=== PATIENT | female | born 1990 | race Caucasian/White ===

== ENCOUNTER → 2016-11-23 | Outpatient (REF) | payer OTHER ==
[~2016-11-23] MED LIST: BIRTH CONTROL PILL; LEVA500T; PERC5TAB8
[2016-11-23 14:01] LABS: MEAN CORPUSCULAR HEMOGLOBIN 31.7 pg (27.0-33.0); MEAN CORPUSCULAR HGB CONC 34.1 g/dl (32.0-36.5); MEAN CORPUSCULAR VOLUME 93.1 fl (80.0-96.0); RED CELL DISTRIBUTION WIDTH 11.4 % (11.5-14.5); WHITE BLOOD COUNT 6.7 K/mm3 (4.0-10.0)
[2016-11-23 15:02] LABS: HCG, SERUM QUANTITATIVE 44954 MIU/ML
[2016-11-24 12:52] LABS: HBsAg Prenatal NEGATIVE (NEGATIVE)
[2016-11-24 13:15] LABS: HIV SCREEN CENTAUR NEGATIVE (NEGATIVE)
== END ==
LOC: M LAB REF 12:25
PROVIDERS: ATTEND Obstetrics & Gynecology
DX: O36.80X0 Pregnancy with inconclusive fetal viability, not applicable or unspecified (principal)

== ENCOUNTER → 2017-01-18 | Outpatient (REF) | payer OTHER | LOC: M LAB REF 16:53 | PROVIDERS: ATTEND Advanced Practice Midwife | DX: Z34.82 Encounter for supervision of other normal pregnancy, second trimester (principal) ==

== ENCOUNTER → 2017-02-03 | Outpatient (REF) | payer OTHER | LOC: M LAB REF 16:25 | PROVIDERS: ATTEND Obstetrics & Gynecology | DX: Z34.02 Encounter for supervision of normal first pregnancy, second trimester (principal); N39.0 Urinary tract infection, site not specified ==

== ENCOUNTER → 2017-04-14 | Outpatient (CLI) | payer BC, OTHER ==
[~2017-04-14] MED LIST changes: +MOTR200T44 PO; +PRENTAB9 PO; +TYLE325C PO
[2017-04-14 12:48] LABS: MEAN CORPUSCULAR HEMOGLOBIN 32.7 pg (27.0-33.0); MEAN CORPUSCULAR HGB CONC 34.4 g/dl (32.0-36.5); RED CELL DISTRIBUTION WIDTH 11.8 % (11.5-14.5)
[2017-04-15 15:40] LABS: WHITE BLOOD COUNT 7.3 K/mm3 (4.0-10.0)
== END ==
LOC: M LAB 10:02
PROVIDERS: ATTEND Obstetrics & Gynecology
DX: Z34.02 Encounter for supervision of normal first pregnancy, second trimester (principal)

== ENCOUNTER 2017-05-13 17:02 | Emergency (ER) | payer BC, OTHER ==
[~2017-05-13] VITALS: Ht 152.4 cm; Wt 66.0 kg
[2017-05-13 17:02] VITALS: BP 126/76
[~2017-05-13 17:02] MED LIST changes: -MOTR200T44 PO; -PRENTAB9 PO; -TYLE325C PO
== END 2017-05-13 17:31 | disposition admitted as inpatient to this hospital (09) ==
LOC: M ED 17:02
DX: Z04.1 Encounter for examination and observation following transport accident (principal); Z53.21 Procedure and treatment not carried out due to patient leaving prior to being seen by health care provider

== ENCOUNTER 2017-05-13 17:35 | Outpatient (CLI) | payer BC, OTHER ==
[~2017-05-13] VITALS: Ht 152.4 cm; Wt 72.0 kg
[2017-05-13 17:47] VITALS: BP 127/60
[2017-05-13 18:43] LABS: BASO % 0.3 % (0.0-1.0); EOS # 0.2 K/mm3 (0.0-0.50); EOS % 2.4 % (0.0-3.0); LARGE UNSTAINED CELL # 0.1 K/mm3 (0.0-0.4); LARGE UNSTAINED CELL % 1.3 % (0.0-4.0); LYMPH # 1.5 K/mm3 (1.5-6.5); LYMPH % 14.7 % (24.0-44.0); MEAN CORPUSCULAR HEMOGLOBIN 31.9 pg (27.0-33.0); MEAN CORPUSCULAR HGB CONC 33.8 g/dl (32.0-36.5); MEAN CORPUSCULAR VOLUME 94.5 fl (80.0-96.0); MONO # 0.5 K/mm3 (0.0-0.8); MONO % 4.9 % (0.0-5.0); NEUTROPHILS # 7.3 K/mm3 (1.8-7.7); NEUTROPHILS % 76.4 % (36.0-66.0); PLATELET COUNT, AUTOMATED 173 k/mm3 (150-450); RED CELL DISTRIBUTION WIDTH 12.3 % (11.5-14.5); WHITE BLOOD COUNT 9.5 K/mm3 (4.0-10.0)
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
== END 2017-05-13 22:20 | disposition home or self-care (01) ==
LOC: M LDO 17:35
PROVIDERS: ATTEND Advanced Practice Midwife
DX: Z04.1 Encounter for examination and observation following transport accident (principal); Z3A.30 30 weeks gestation of pregnancy; O99.353 Diseases of the nervous system complicating pregnancy, third trimester; G43.909 Migraine, unspecified, not intractable, without status migrainosus; Z87.442 Personal history of urinary calculi

== ENCOUNTER → 2017-06-13 | Outpatient (REF) | payer OTHER ==
[~2017-06-13] MED LIST changes: +MOTR200T44 PO; +PRENTAB9 PO; +TYLE325C PO
== END ==
LOC: M LAB REF 13:06
PROVIDERS: ATTEND Obstetrics & Gynecology
DX: Z34.83 Encounter for supervision of other normal pregnancy, third trimester (principal); Z3A.35 35 weeks gestation of pregnancy

== ENCOUNTER 2017-06-21 10:35 | Inpatient (IN) | payer BC, OTHER ==
[~2017-06-21] VITALS: Ht 152.4 cm; Wt 67.4 kg
[2017-06-21] VITALS (12 sets, daily range): BP systolic 106–138; BP diastolic 52–88
[~2017-06-21 10:35] MED LIST changes: -MOTR200T44 PO; -PRENTAB9 PO; -TYLE325C PO
[2017-06-21] MEDS ORDERED: LR 1,000 ML IV SCH (11:08)
[2017-06-21] MEDS ORDERED: LACTATED RINGER'S 1000 ML IV STA (11:08)
[2017-06-21] MEDS ORDERED: BETAMETHASONE SOLUSPAN 6MG/ML INJ 5ML (J0702) IM SCH (11:30)
[2017-06-21 11:46] LABS: BASO # 0.1 10^3/uL (0.0-0.2); BASO % 0.5 % (0.0-1.0); EOS # 0.1 10^3/uL (0.0-0.50); IMMATURE GRANULOCYTE % 1.1 % (0-0); LYMPH # 1.4 10^3/uL (1.5-6.5); LYMPH % 11.6 % (24.0-44.0); MEAN CORPUSCULAR HEMOGLOBIN 32.8 pg (27.0-33.0); MEAN CORPUSCULAR HGB CONC 35.2 g/dl (32.0-36.5); MEAN CORPUSCULAR VOLUME 93.1 fl (80.0-96.0); MONO # 0.6 10^3/uL (0.0-0.8); MONO % 4.9 % (0.0-5.0); NEUTROPHILS % 80.9 % (36.0-66.0); PLATELET COUNT, AUTOMATED 148 10^3/uL (150-450); RED CELL DISTRIBUTION WIDTH 12.1 % (11.5-14.5); WHITE BLOOD COUNT 12.4 10^3/uL (4.0-10.0)
[2017-06-21] MEDS ORDERED: FENTANYL 2MCG/ML ROPIVACAINE 0.2% IN 0.9% NACL 200ML IVBAG As Ordered ONE (11:56)
[2017-06-21] MEDS ORDERED: BUTORPHANOL 2 MG/ML INJ (J0595) IV ONE (13:00)
[2017-06-21] MEDS ORDERED: OXYTOCIN 30 UNITS IN 0.9% NaCl 500ML IV BAG (J2590) As Ordered ONE (13:47)
[2017-06-21] MEDS ORDERED: OXYTOCIN DRIP 30 UNITS in APPROPRIATE DILUENT 1 EA IV SCH (15:05)
[2017-06-21] MEDS ORDERED: IBUPROFEN 800 MG TAB PO PRN (15:15)
[2017-06-21] MEDS ORDERED: MEASLES,MUMPS,RUBELLA VACCINE INJ (MMR-II) (90707) SC SCH (15:15)
[2017-06-21] MEDS ORDERED: ANUSOL HC CREAM 30GM TOP PRN (15:15)
[2017-06-21] MEDS ORDERED: METHYLERGONOVINE MALEATE 0.2 MG TAB PO PRN (15:15)
[2017-06-21] MEDS ORDERED: DIBUCAINE 1% OINTMENT 30GM TOP PRN (15:15)
[2017-06-21] MEDS ORDERED: OXYTOCIN INJ 10 UNITS/ML VIAL (J2590) IM ONE (15:15)
[2017-06-21] MEDS ORDERED: RHOGAM 300 MCG (1500 IU) INJ (J2790) IM SCH (15:15)
[2017-06-21] MEDS ORDERED: ACETAMINOPHEN 500 MG TAB PO PRN (15:15)
[2017-06-21] MEDS ORDERED: LIDOCAINE 1% MDV INJ 50 ML VIAL INFIL ONE (15:15)
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
[2017-06-21] MEDS: DOCUSATE SODIUM 100 MG CAP PO PRN (19:53)
--- NOTE | 2017-06-21 20:00 | DNPDOC ---
[facility] Delivery Note Delivery Note DATE OF DELIVERY: 06/21/17 at 1430. PROCEDURE: Spontaneous vaginal delivery. PROVIDER: Lulu Mcconnell CNM, NAZANIN ANESTHESIA: none. ESTIMATED BLOOD LOSS: 200 mL. FINDINGS: 5 pounds 7 ounces, 2460 grams, female , Score 8/9. Short umbilical cord. Premature delivery. DELIVERY SUMMARY: Patient is a 26 year-old female who is now a at 36.3 weeks, who presented to L&D in active labor and SROM. She ruptured at 0630 today to a moderate amount of clear fluid. She obtained stadol for pain management. The patient progressed to fully dilated at 1351 and pushed to a of a living female in the ANAHI position with restitution to LOT at 1430. The anterior shoulder delivered with ease and the corpus immediately followed. The baby was placed on the maternal lower abdomen active and crying, [id number]. The cord was clamped times 2 after 1 minute and cut by provider. The umbilical cord appeared very short. A 3-vessel cord was noted.The placenta delivered spontaneously and intact at 1440. The placenta and cord were sent to pathology for evaluation due to PROM and extremely short cord. Uterine hemostasis achieved by 10 mu of IM Pitocin due to the patient's IV falling out while pushing and fundal massage. The perineum and vagina were inspected and found to have a 1st degree perineal laceration that was repaired with a 3.[address]-1. The patient did receive 1 dose of betamethasone. The patient is going to breastfeed her daughter. Both mom and baby are in stable condition. LULU MCCONNELL CNM Jun 21, 2017 20:00
[2017-06-22 06:00] VITALS: BP 109/57
[2017-06-22] MEDS: PRENATAL VITAMINS CHEWABLE TABLET PO SCH (08:55)
[2017-06-22 17:58] VITALS: BP 109/68
[2017-06-23 05:54] VITALS: BP 113/71
[2017-06-23] MEDS: DOCUSATE SODIUM 100 MG CAP PO PRN (08:22)
[2017-06-23] MEDS: PRENATAL VITAMINS CHEWABLE TABLET PO SCH (08:22)
[2017-06-23] MEDS ORDERED: TYLE325C PO (09:37)
[2017-06-23] MEDS ORDERED: PRENTAB9 PO (09:37)
[2017-06-23] MEDS ORDERED: MOTR200T44 PO (09:38)
== END 2017-06-23 10:05 | disposition home or self-care (01) | DRG 560 ==
LOC: M LDI 10:35 → M OBS 17:40
PROVIDERS: ADMIT Obstetrics & Gynecology; ATTEND Obstetrics & Gynecology
PROC: 10E0XZZ Delivery of Products of Conception, External Approach (ICD-10-PCS; principal; 2017-06-21)
PROC: 0HQ9XZZ Repair Perineum Skin, External Approach (ICD-10-PCS; 2017-06-21)
DX: O42.013 Preterm premature rupture of membranes, onset of labor within 24 hours of rupture, third trimester (principal); O60.14X0 Preterm labor third trimester with preterm delivery third trimester, not applicable or unspecified; Z3A.36 36 weeks gestation of pregnancy; Z37.0 Single live birth; Z79.899 Other long term (current) drug therapy; O70.0 First degree perineal laceration during delivery; O69.3XX0 Labor and delivery complicated by short cord, not applicable or unspecified

== ENCOUNTER → 2018-05-22 | Outpatient (REF) | payer BC, OTHER ==
[2018-05-22 14:10] LABS: HEMATOCRIT 42.7 % (36.0-47.0); HEMOGLOBIN 14.3 g/dl (12.0-15.5); MEAN CORPUSCULAR HEMOGLOBIN 31.8 pg (27.0-33.0); MEAN CORPUSCULAR HGB CONC 33.5 g/dl (32.0-36.5); MEAN CORPUSCULAR VOLUME 94.9 fl (80.0-96.0); PLATELET COUNT, AUTOMATED 248 10^3/uL (150-450); RED CELL DISTRIBUTION WIDTH 11.4 % (11.5-14.5); WHITE BLOOD COUNT 6.3 10^3/uL (4.0-10.0)
[2018-05-22 15:01] LABS: HBsAg Prenatal NEGATIVE (NEGATIVE); HCG, SERUM QUANTITATIVE 877 MIU/ML; RUBELLA IgG QUALITATIVE IMMUNE (IMMUNE)
[2018-05-22 15:27] LABS: HEPATITIS C VIRUS ABY INDEX 0.1 INDEX (<0.8)
[2018-05-22 15:28] LABS: HIV 1&2 SCREEN CENTAUR NEGATIVE (NEGATIVE)
== END ==
LOC: M LAB REF 13:15
DX: O36.80X0 Pregnancy with inconclusive fetal viability, not applicable or unspecified (principal); Z32.01 Encounter for pregnancy test, result positive
CPT/HCPCS: 86762

== ENCOUNTER → 2018-07-19 | Outpatient (REF) | payer OTHER ==
[2018-07-19 15:24] LABS: CHLAMYDIA DNA AMPLIFICATION NEGATIVE (NEGATIVE); GC DNA AMPLIFICATION NEGATIVE (NEGATIVE)
== END ==
LOC: M LAB REF 13:05
DX: Z36.89 Encounter for other specified antenatal screening (principal)
CPT/HCPCS: 87591

== ENCOUNTER → 2018-07-25 | Outpatient (REF) | payer OTHER ==
[2018-07-25 19:54] LABS: INFLUENZA A AMPLIFICATION NEGATIVE (NEGATIVE); INFLUENZA B AMPLIFICATION NEGATIVE (NEGATIVE)
== END ==
LOC: M LAB REF 18:04
DX: R50.9 Fever, unspecified (principal); J00 Acute nasopharyngitis [common cold]

== ENCOUNTER → 2018-10-23 | Outpatient (CLI) | payer BC, OTHER ==
[~2018-10-23] MED LIST changes: +MOTR200T44 PO; +PRENTAB9 PO; +TYLE325C PO
[2018-10-23 11:23] LABS: HEMATOCRIT 33.6 % (36.0-47.0); HEMOGLOBIN 11.5 g/dl (12.0-15.5); MEAN CORPUSCULAR HGB CONC 34.2 g/dl (32.0-36.5); MEAN CORPUSCULAR VOLUME 96.6 fl (80.0-96.0); PLATELET COUNT, AUTOMATED 208 10^3/uL (150-450); RED BLOOD COUNT 3.48 10^6/uL (4.00-5.40); WHITE BLOOD COUNT 9.5 10^3/uL (4.0-10.0)
== END ==
LOC: M LAB 09:51
PROVIDERS: ATTEND Obstetrics & Gynecology
DX: O09.212 Supervision of pregnancy with history of pre-term labor, second trimester (principal)

== ENCOUNTER → 2018-12-27 | Outpatient (REF) | payer OTHER | LOC: M LAB REF 19:03 | PROVIDERS: ATTEND Obstetrics & Gynecology | DX: Z34.83 Encounter for supervision of other normal pregnancy, third trimester (principal) ==

== ENCOUNTER 2019-01-17 21:40 | Inpatient (IN) | payer BC, OTHER ==
[~2019-01-17] VITALS: Ht 152.4 cm; Wt 69.0 kg
[2019-01-17] MEDS ORDERED: LACTATED RINGER'S 1000 ML IV STA (22:25)
[2019-01-17] MEDS ORDERED: LR 1,000 ML IV SCH (22:25)
[2019-01-17 22:36] VITALS: BP 112/54
[2019-01-17 22:41] LABS: HEMATOCRIT 32.4 % (36.0-47.0); HEMOGLOBIN 10.8 g/dl (12.0-15.5); MEAN CORPUSCULAR HEMOGLOBIN 30.7 pg (27.0-33.0); MEAN CORPUSCULAR HGB CONC 33.3 g/dl (32.0-36.5); PLATELET COUNT, AUTOMATED 143 10^3/uL (150-450); RED BLOOD COUNT 3.52 10^6/uL (4.00-5.40); WHITE BLOOD COUNT 8.9 10^3/uL (4.0-10.0)
[2019-01-17] MEDS ORDERED: FENTANYL 2MCG/ML ROPIVACAINE 0.2% IN 0.9% NACL 100ML IVBAG As Ordered ONE (23:28)
[2019-01-17] MEDS ORDERED: OXYTOCIN 30 UNITS IN 0.9% NaCl 500ML IV BAG (J2590) As Ordered ONE (23:28)
[2019-01-17 23:32] VITALS: BP 128/67
[2019-01-18] VITALS (9 sets, daily range): BP systolic 99–136; BP diastolic 51–87
[2019-01-18 01:08] LABS: CORD GAS ABE V -6.6; CORD GAS HCO3 V 19.2 MEQ/L; CORD GAS O2 SAT V 71.1 %; CORD GAS PCO2 V 39.8 mmHg; CORD GAS PH V 7.302 UNITS; CORD GAS PO2 V 31.4 mmHg; CORD GAS SBC V 18.5 MEQ/L; CORD GAS TCO2 V 20.5 MEQ/L
[2019-01-18 01:10] LABS: CORD GAS ABE A -9.3; CORD GAS HCO3 A 19.5 MEQ/L; CORD GAS O2 SAT A 66.9 %; CORD GAS PCO2 A 53.3 mmHg; CORD GAS PH A 7.182 UNITS; CORD GAS SBC A 16.5 MEQ/L; CORD GAS TCO2 A 21.2 MEQ/L
[2019-01-18] MEDS ORDERED: DOCUSATE SODIUM 100 MG CAP PO PRN (01:30)
[2019-01-18] MEDS ORDERED: ACETAMINOPHEN 500 MG TAB PO PRN (01:30)
[2019-01-18] MEDS ORDERED: MEASLES,MUMPS,RUBELLA VACCINE INJ (MMR-II) (90707) SC SCH (01:30)
[2019-01-18] MEDS ORDERED: METHYLERGONOVINE MALEATE 0.2 MG TAB PO PRN (01:30)
[2019-01-18] MEDS ORDERED: OXYTOCIN INJ 10 UNITS/ML VIAL (J2590) IM ONE (01:30)
[2019-01-18] MEDS ORDERED: DIBUCAINE 1% OINTMENT 30GM TOP PRN (01:30)
[2019-01-18] MEDS ORDERED: ACETAMINOPHEN TAB 650MG DOSE (2X325MG) PO PRN (01:30)
[2019-01-18] MEDS ORDERED: IBUPROFEN 600 MG TAB PO PRN (01:30)
[2019-01-18] MEDS ORDERED: LIDOCAINE 1% MDV 20ML VIAL INFIL ONE (01:30)
[2019-01-18] MEDS ORDERED: RHOGAM 300 MCG (1500 IU) INJ (J2790) IM SCH (01:30)
[2019-01-18] MEDS: IBUPROFEN 800 MG TAB PO PRN ×2 (02:30→10:21)
--- NOTE | 2019-01-18 08:41 | HPE ---
DATE OF ADMISSION: 01/17/2019 Elsie is a 28-year-old 2, para 0-1-0-1, 39 weeks gestation, EDC of 01/24/2019 based on first trimester ultrasound. She presents to labor and delivery today with report of spontaneous rupture of membranes at 2085 hours. She reports the fluid as clear and continued leakage. She reports contractions started almost immediately after rupture. She denies vaginal bleeding. The fetus has been active. Her care was initiated at [facility] in the first trimester. Her course complicated by a history of a delivery. She has utilized Pichardo injections from week 16 through week 36. OBSTETRICAL HISTORY: May 2017, 36 weeks gestation, 5 pounds 7 ounces female, vaginal delivery uncomplicated. OBSTETRIC LABORATORIES: O+, antibody screen negative, rubella immune, VDRL nonreactive. Urine culture no growth. Hep B surface antigen negative, HIV negative. Hep C antibody nonreactive. Gonorrhea and chlamydia negative. Gestational diabetic screening normal at 92 and her Group B streptococcus (GBS) is negative. PAST MEDICAL HISTORY: Childhood varicella, migraine headaches, kidney stones. SURGERIES: Fractured arm. FAMILY HISTORY: Breast cancer, adrenal cancer, heart attack. SOCIAL HISTORY: The patient is . She is employed as a teacher. She is a nonsmoker. Denies alcohol or drug use and no history of any sexually transmitted infections. She denies history of abuse; physical, sexual and emotional. ALLERGIES: No known drug allergies. CURRENT MEDICATIONS: vitamin. OBJECTIVE: Temperature 99.8, pulse 77, respirations 20, blood pressure is 112/54. She is appears somewhat uncomfortable with her contractions. heart rate is 130 with moderate variability, no accelerations, no decelerations. She is ry every 2-4 minutes. Sterile speculum exam: Positive Valsalva, positive pooling, clear fluid, positive Nitrazine, positive fern. Sterile vaginal exam: 3-4 cm dilated 90% effaced, -2 station, mid position. ASSESSMENT: Intrauterine at 39 weeks. heart rate category 1, active labor. PLAN: Admit the patient to labor and delivery. Out of bed ad joan. Clear liquid diet. Routine labs. IV fluid bolus as the patient is requesting an epidural for her labor coping. I do anticipate continued labor progress and a spontaneous vaginal delivery.
--- NOTE | 2019-01-18 08:59 | DN ---
DATE: 01/18/2019 Elsie is a 28-year-old 2, para 2-0-0-2 now admitted to labor and delivery in active labor. She coped with her labor physiologically. She reached complete dilation at 0044. She pushed to a normal spontaneous vaginal delivery of a live male in OA position with restitution to LOT position at 0044. There was a shoulder dystocia lasting approximately 1 minute that was resolved with Fazal maneuver and suprapubic pressure. The male, mouth and nares were bulb suctioned and he was placed on maternal abdomen crying and active. Cord blood and cord gasses were obtained. Arterial cord pH 7.182, base excess of -9.3. Venous cord pH 7.302, base excess of 6-, 6.6. A spontaneous expulsion of an intact placenta with three-vessel cord by Miller mechanism was at 0055. Uterine hemostasis achieved with Pitocin 10 units IM and uterine fundal massage. Estimated blood loss 350 mL. Perineum and vagina inspected noted to have a second-degree midline laceration. The laceration was infiltrated with 1% lidocaine and repaired with 3-0 Rapide in the usual fashion. [place] male weighed 7 pounds 12 ounces, 3510 grams, 08/09. Mom is going to breastfeed her son and the family have named him Elizabet. He was moving all of his extremities well with no difficulty. At the close of delivery, lap counts, needle counts and instrument counts were correct and verified.
[2019-01-18] MEDS: PRENATAL VITAMINS CHEWABLE TABLET PO SCH (10:21)
[2019-01-19] MEDS: IBUPROFEN 800 MG TAB PO PRN (05:26)
[2019-01-19 06:00] VITALS: BP 114/64
[2019-01-19] MEDS: PRENATAL VITAMINS CHEWABLE TABLET PO SCH (09:00)
[2019-01-19] MEDS ORDERED: MAPA500T2 PO (10:13)
== END 2019-01-19 15:00 | disposition home or self-care (01) | DRG 560 ==
LOC: M LDO 21:40 → M LDI 22:20 → M OBS 01-18 03:25
PROVIDERS: ADMIT Advanced Practice Midwife; ATTEND Advanced Practice Midwife
PROC: 10E0XZZ Delivery of Products of Conception, External Approach (ICD-10-PCS; principal; 2019-01-18)
PROC: 0KQM0ZZ Repair Perineum Muscle, Open Approach (ICD-10-PCS; 2019-01-18)
DX: O66.0 Obstructed labor due to shoulder dystocia (principal); O70.1 Second degree perineal laceration during delivery; Z3A.39 39 weeks gestation of pregnancy; Z37.0 Single live birth